=== PATIENT | female | born 2000 | race Two or more races ===

== ENCOUNTER 2019-10-13 11:02 | Inpatient (IN) | payer MEDICAID ==
[~2019-10-13 11:02] MED LIST: Bupivacaine 0.25% 10 ML SDV ONE
[2019-10-13] MEDS ORDERED: Nalbuphine 10 MG/ML Syringe IVPUSH PRN (11:44)
[2019-10-13] MEDS ORDERED: Sodium Chloride 0.9% 10 ML Syringe FLUSH PRN (11:44)
[2019-10-13] MEDS ORDERED: Ondansetron 4 MG/2 ML SDV IVPUSH PRN (11:44)
[2019-10-13] MEDS ORDERED: Oxytocin/Lactated Ringers 10 UNIT/1,000 ML BAG IV SCH ×2 (11:45→12:00)
--- NOTE | 2019-10-13 11:48 | PCM.LDHP ---
L&D History of Present Illness - General Date of Service: 10/13/19 Admit Problem/Dx: Patient Status Order with Admit Dx/Problem 10/13/19 11:44 Patient Status [ADT] Routine Admission Diagnosis/Problem Admission Diagnosis/Problem Normal in third trimester Source of Information: Patient History Limitations: Reports: No Limitations - History of Present Illness Introduction:: Patient is a 19 y/o at 39 2/7 wks who presents for IOL. Was seen in clinic earlier today for concerns of decreased FM. NST reassuring, but not initially reactive. For this reason was sent for IOL. Doing well otherwise - Related Data Allergies/Adverse Reactions: Allergies Allergy/AdvReac Type Severity Reaction Status Date / Time No Known Allergies Allergy Verified 01/28/19 11:08 Home Medications: Home Meds . 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 (Approximate): Social & Family History - Family History Family Medical History: Noncontributory - Tobacco Use Smoking Status *Q: Never Smoker - Caffeine Use Caffeine Use: Reports: Coffee - Alcohol Use Alcohol Use History: No - Recreational Drug Use Recreational Drug Use: No H&P Review of Systems - Review of Systems: Review Of Systems: See Below General: Reports: No Symptoms Pulmonary: Reports: No Symptoms Cardiovascular: Reports: No Symptoms Gastrointestinal: Reports: No Symptoms Genitourinary: Reports: No Symptoms Musculoskeletal: Reports: No Symptoms Psychiatric: Reports: No Symptoms Neurological: Reports: No Symptoms L&D Exam - Exam Exam: See Below - OB Specific Contraction Intensity: Irritability Movement: Active Heart Tones: Present Heart Tones per Min: 145 Heart Rate (FHR) Variability: Moderate (6-25 bmp) Presentation: Vertex - Leal Score Leal Score Cervix Position: Midposition Leal Score Consistency: Soft Leal Score Effacement: 51-70% Leal Score Dilation: 3-4 cm Leal Score Infant's Station: -3 Leal Score Total: 7 - Exam General: Alert, Oriented, Cooperative Lungs: Clear to Auscultation, Normal Respiratory Effort Cardiovascular: Regular Rate, Regular Rhythm GI/Abdominal Exam: Soft, Non-Tender Genitourinary: Normal external exam Extremities: Normal Inspection - Patient Data Result Diagrams: 10/13/19 11:55 - Problem List (1) 39 weeks gestation of SNOMED Code(s): 84445055 ICD Code: Z3A.39 - 39 WEEKS GESTATION OF Status: Acute Current Visit: Yes (2) Gestational thrombocytopenia SNOMED Code(s): 604396396 ICD Code: O99.119 - OTH DIS OF BLD/BLD-FORM ORG/IMMUN MECHNSM COMP PREG,UNSP TRI; D69.6 - THROMBOCYTOPENIA, UNSPECIFIED Status: Acute Current Visit: Yes Qualifiers: Trimester: third trimester Qualified Code(s): O99.113 - Other diseases of the blood and blood-forming organs and certain disorders involving the immune mechanism complicating , third trimester; D69.6 - Thrombocytopenia, unspecified Problem List Initiated/Reviewed/Updated: Yes Orders Last 24hrs: Active Orders 24 hr Category Date Time Status Patient Status [ADT] Routine ADT 10/13/19 11:44 Ordered Activity as Tolerated [RC] PFP Care 10/13/19 11:44 Ordered Communication Order [RC] ASDIRECTED Care 10/13/19 11:44 Ordered Heart Tones [RC] ASDIRECTED Care 10/13/19 11:44 Ordered Non Stress Test [RC] PER UNIT ROUTINE Care 10/13/19 11:44 Ordered Notify Provider [RC] PRN Care 10/13/19 11:44 Ordered Peripheral IV Care [RC] . DIRECTED Care 10/13/19 11:44 Ordered Vital Signs [RC] PER UNIT ROUTINE Care 10/13/19 11:44 Ordered Regular Diet [DIET] Diet 10/13/19 Breakfast Ordered CBC W/O DIFF,HEMOGRAM [HEME] Routine Lab 10/13/19 11:44 Ordered RAPID PLASMA REAGIN,RPR [CHEM] Routine Lab 10/13/19 11:44 Ordered TYPE AND SCREEN [BBK] Routine Lab 10/13/19 11:44 Ordered Lactated Ringers [Ringers, Lactated] 1,000 ml Med 10/13/19 11:45 Ordered IV ASDIRECTED Nalbuphine [Nubain] Med 10/13/19 11:44 Ordered 10 mg IVPUSH Q2H PRN Ondansetron [Zofran] Med 10/13/19 11:44 Ordered 4 mg IVPUSH Q4H PRN Oxytocin/Lactated Ringers [Pitocin in LR 10 Units/1,000 Med 10/13/19 11:45 Ordered ML] 10 unit in 1,000 ml IV .CONTINUOUS Oxytocin/Lactated Ringers [Pitocin in LR 10 Units/1,000 Med 10/13/19 12:00 Ordered ML] 10 unit in 1,000 ml IV TITRATE Sodium Chloride 0.9% [Saline Flush] Med 10/13/19 11:44 Ordered 10 ml FLUSH ASDIRECTED PRN Electronic Heart Tones Ext w TOCO [WOMSER] Oth 10/13/19 11:44 Ordered Routine Electronic Heart Tones Internal [WOMSER] Per Unit Oth 10/13/19 11:44 Ordered Routine Peripheral IV Insertion Adult [OM.PC] Routine Oth 10/13/19 11:44 Ordered Resuscitation Status Routine Resus Stat 10/13/19 11:44 Ordered Medication Orders Lactated Ringer's (Ringers, Lactated) 1,000 mls @ 100 mls/hr IV ASDIRECTED JACKIE Oxytocin/Lactated Ringer's (Pitocin In Lr 10 Units/1,000 Ml) 10 unit in 1,000 mls @ 500 mls/hr IV .CONTINUOUS JACKIE Nalbuphine HCl (Nubain) 10 mg IVPUSH Q2H PRN PRN Reason: Pain Ondansetron HCl (Zofran) 4 mg IVPUSH Q4H PRN PRN Reason: Nausea/Vomiting Sodium Chloride (Saline Flush) 10 ml FLUSH ASDIRECTED PRN PRN Reason: Keep Vein Open Assessment/Plan Comment:: * Labs done * GBS negative, no need for antibiotics * AROM and pitocin for IOL * Pain management per patient preference * Anticipate
[2019-10-13] MEDS: Lactated Ringers 1,000 ML IV SCH ×4 (12:45→18:08)
--- NOTE | 2019-10-13 13:15 | PCM.PREANE ---
Preanesthetic Assessment - Procedure Proposed Procedure: Continuous labor epidural - Anesthesia/Transfusion/Family Hx Anesthesia History: No Prior Anesthesia Transfusion History: No Prior Transfusion(s) - Review of Systems General: No Symptoms Pulmonary: No Symptoms Cardiovascular: No Symptoms Gastrointestinal: No Symptoms Neurological: No Symptoms Other: Reports: None - Physical Assessment Vital Signs: Last Vital Signs Temp 98.0 F 10/13/19 11:44 Pulse 100 10/13/19 11:44 Resp 16 10/13/19 11:44 BP 122/75 10/13/19 11:44 Pulse Ox Height: 1.65 m Weight: 81.647 kg ASA Class: 2 Mental Status: Alert & Oriented x3 Airway Class: Mallampati = 2 Dentition: Reports: Normal Dentition Thyro-Mental Finger Breadths: 3 Mouth Opening Finger Breadths: 3 ROM/Head Extension: Full Lungs: Clear to Auscultation, Normal Respiratory Effort Cardiovascular: Regular Rate, Regular Rhythm - Lab Values: Laboratory Last Values WBC 8.85 K/mm3 (3.98-10.04) 10/13/19 11:55 RBC 4.25 M/mm3 (3.98-5.22) 10/13/19 11:55 Hgb 13.1 gm/dl (11.2-15.7) 10/13/19 11:55 Hct 39.1 % (34.1-44.9) 10/13/19 11:55 MCV 92.0 fl (79.4-94.8) 10/13/19 11:55 MCH 30.8 pg (25.6-32.2) 10/13/19 11:55 MCHC 33.5 g/dl (32.2-35.5) 10/13/19 11:55 RDW Std Deviation 43.2 fL (36.4-46.3) 10/13/19 11:55 Plt Count 102 K/mm3 (182-369) L 10/13/19 11:55 MPV 11.4 fl (9.4-12.3) 10/13/19 11:55 - Allergies Allergies/Adverse Reactions: Allergies Allergy/AdvReac Type Severity Reaction Status Date / Time No Known Allergies Allergy Verified 01/28/19 11:08 - Acknowledgements Anesthesia Type Planned: Epidural Pt an Appropriate Candidate for the Planned Anesthesia: Yes Alternatives and Risks of Anesthesia Discussed w Pt/Guardian: Yes Pt/Guardian Understands and Agrees with Anesthesia Plan: Yes PreAnesthesia Questionnaire - Past Health History Medical/Surgical History: Denies 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 [No Known Home Meds] 01/28/19 [History] - CURRENT (IN HOUSE) MEDS Current Meds: Current Medications Lactated Ringer's (Ringers, Lactated) 1,000 mls @ 100 mls/hr IV ASDIRECTED JACKIE Last Admin: 10/13/19 12:45 Dose: 100 mls/hr Oxytocin/Lactated Ringer's (Pitocin In Lr 10 Units/1,000 Ml) 10 unit in 1,000 mls @ 500 mls/hr IV .CONTINUOUS JACKIE Oxytocin/Lactated Ringer's (Pitocin In Lr 10 Units/1,000 Ml) 10 unit in 1,000 mls @ 12 mls/hr IV TITRATE JACKIE; Protocol Last Admin: 10/13/19 12:46 Dose: 2 munits/min, 12 mls/hr Nalbuphine HCl (Nubain) 10 mg IVPUSH Q2H PRN PRN Reason: Pain Ondansetron HCl (Zofran) 4 mg IVPUSH Q4H PRN PRN Reason: Nausea/Vomiting Sodium Chloride (Saline Flush) 10 ml FLUSH ASDIRECTED PRN PRN Reason: Keep Vein Open
[2019-10-13] MEDS ORDERED: fentaNYL 100 MCG/2 ML SDV EPIDUR PRN (13:37)
[2019-10-13] MEDS ORDERED: diphenhydrAMINE 50 MG/ML SDV IVPUSH PRN (13:37)
[2019-10-13] MEDS ORDERED: Bupivacaine/fentaNYL/NS 100 ML Bag EPIDUR PRN (13:37)
[2019-10-13] MEDS ORDERED: ePHEDrine 50 MG/ML SDV IVPUSH PRN (13:37)
--- NOTE | 2019-10-13 19:36 | PCM.DEL ---
L & D Note - General Info Date of Service: 10/13/19 - Delivery Note Labor: Induced by ARM, Induced by Oxytocin Delivery Outcome: Livebirth Infant Delivery Method: Spontaneous Vaginal Delivery-Single Infant Delivery Mode: Spontaneous Presentation: Left Occiput Anterior (GUSTAVO) Nuchal Cord: Present, Reduced Anesthesia Type: Epidural Amniotic Fluid Description: Clear Episiotomy Type: None Laceration: None Placenta: Intact, Spontaneous Cord: 3 Vessels Estimated Blood Loss: 100 Resuscitation Needed: Yes Heron: Bulb Syringe, Stimulated, Warmed, Shelby Used, Warmer Used Delivery Comments (Free Text/Narrative):: Patient found to be complete and began pushing. With maternal pushing effort head delivered from PAYTON presentation. Nuchal cord present and reduced. With gentle downward traction shoulder did not immediately deliver. Patient placed in deep Alexandra and shoulder did deliver. rest of body followed. Infant placed on maternal abdomen. Cord clamped and cut. Cord blood obtained. Placenta allowed time to separate and expelled intact. Inspection of perineum showed no lacerations - General Info Date of Service: 10/13/19 - Patient Data Vitals - Most Recent: Last Vital Signs Temp 36.7 C 10/13/19 11:44 Pulse 100 10/13/19 11:44 Resp 16 10/13/19 11:44 BP 122/75 10/13/19 11:44 Pulse Ox Weight - Most Recent: 81.647 kg Lab Results Last 24 Hours: Laboratory Results - last 24 hr 10/13/19 10/13/19 Range/Units 11:55 11:55 WBC 8.85 (3.98-10.04) K/mm3 RBC 4.25 (3.98-5.22) M/mm3 Hgb 13.1 (11.2-15.7) gm/dl Hct 39.1 (34.1-44.9) % MCV 92.0 (79.4-94.8) fl MCH 30.8 (25.6-32.2) pg MCHC 33.5 (32.2-35.5) g/dl RDW Std Deviation 43.2 (36.4-46.3) fL Plt Count 102 L (182-369) K/mm3 MPV 11.4 (9.4-12.3) fl Blood Type O POSITIVE Gel Antibody Screen Negative Med Orders - Current: Current Medications Diphenhydramine HCl (Benadryl) 25 mg IVPUSH Q6H PRN PRN Reason: pruritis Ephedrine Sulfate (Ephedrine Sulfate) 5 mg IVPUSH ASDIRECTED PRN PRN Reason: Hypotension Fentanyl (Sublimaze) 100 mcg EPIDUR Q3H PRN PRN Reason: Pain Last Admin: 10/13/19 16:29 Dose: 100 mcg Fentanyl/Bupivacaine HCl (Fentanyl/Bupivacaine/Ns 2 Mcg-0.125% 100 Ml) 100 ml EPIDUR ASDIRECTED PRN PRN Reason: Pain Last Admin: 10/13/19 16:30 Dose: 100 ml Lactated Ringer's (Ringers, Lactated) 1,000 mls @ 100 mls/hr IV ASDIRECTED JACKIE Last Admin: 10/13/19 18:08 Dose: 100 mls/hr Oxytocin/Lactated Ringer's (Pitocin In Lr 10 Units/1,000 Ml) 10 unit in 1,000 mls @ 500 mls/hr IV .CONTINUOUS JACKIE Oxytocin/Lactated Ringer's (Pitocin In Lr 10 Units/1,000 Ml) 10 unit in 1,000 mls @ 12 mls/hr IV TITRATE JACKIE; Protocol Last Titration: 10/13/19 14:49 Dose: 4 munits/min, 24 mls/hr Nalbuphine HCl (Nubain) 10 mg IVPUSH Q2H PRN PRN Reason: Pain Ondansetron HCl (Zofran) 4 mg IVPUSH Q4H PRN PRN Reason: Nausea/Vomiting Sodium Chloride (Saline Flush) 10 ml FLUSH ASDIRECTED PRN PRN Reason: Keep Vein Open - Problem List & Annotations (1) 39 weeks gestation of SNOMED Code(s): 88092870 Code(s): Z3A.39 - 39 WEEKS GESTATION OF Status: Acute Current Visit: Yes (2) Gestational thrombocytopenia SNOMED Code(s): 723418069 Code(s): O99.119 - OTH DIS OF BLD/BLD-FORM ORG/IMMUN MECHNSM COMP PREG,UNSP TRI; D69.6 - THROMBOCYTOPENIA, UNSPECIFIED Status: Acute Current Visit: Yes Qualifiers: Trimester: third trimester Qualified Code(s): O99.113 - Other diseases of the blood and blood-forming organs and certain disorders involving the immune mechanism complicating , third trimester; D69.6 - Thrombocytopenia, unspecified (3) Vaginal delivery SNOMED Code(s): 297902434 Code(s): O80 - ENCOUNTER FOR FULL-TERM UNCOMPLICATED DELIVERY Status: Acute Current Visit: Yes - Problem List Review Problem List Initiated/Reviewed/Updated: Yes - My Orders Last 24 Hours: My Active Orders 10/13/19 11:44 Patient Status [ADT] Routine Activity as Tolerated [RC] PFP Communication Order [RC] ASDIRECTED Heart Tones [RC] ASDIRECTED Non Stress Test [RC] PER UNIT ROUTINE Notify Provider [RC] PRN Vital Signs [RC] PER UNIT ROUTINE Nalbuphine [Nubain] 10 mg IVPUSH Q2H PRN Ondansetron [Zofran] 4 mg IVPUSH Q4H PRN Sodium Chloride 0.9% [Saline Flush] 10 ml FLUSH ASDIRECTED PRN Electronic Heart Tones Ext w TOCO [WOMSER] Routine Electronic Heart Tones Internal [WOMSER] Per Unit Routine Peripheral IV Insertion Adult [OM.PC] Routine Resuscitation Status Routine 10/13/19 11:45 Lactated Ringers [Ringers, Lactated] 1,000 ml IV ASDIRECTED Oxytocin/Lactated Ringers [Pitocin in LR 10 Units/1,000 ML] 10 unit in 1,000 ml IV .CONTINUOUS 10/13/19 11:55 PATIENT RETYPE [BBK] Routine RAPID PLASMA REAGIN,RPR [CHEM] Routine 10/13/19 12:00 Oxytocin/Lactated Ringers [Pitocin in LR 10 Units/1,000 ML] 10 unit in 1,000 ml IV TITRATE 10/13/19 Breakfast Regular Diet [DIET] - Assessment Assessment:: PPD#0 - Plan Plan:: * Routine cares * Breast feeding * Discharge home tomorrow
[2019-10-13] MEDS ORDERED: Benzocaine/Menthol 20%-0.5% Spray 56 GM Canister TOP PRN (19:47)
[2019-10-13] MEDS ORDERED: Docusate Sodium 100 MG Cap PO PRN (19:47)
[2019-10-13] MEDS ORDERED: Witch Hazel Medicated Pads 40/Jar TOP PRN (19:47)
[2019-10-13] MEDS: Ibuprofen 600 MG Tab PO PRN (21:06)
[2019-10-14] MEDS: Ibuprofen 600 MG Tab PO PRN ×3 (04:23→20:24)
--- NOTE | 2019-10-14 07:04 | PCM.DCSUM1 ---
Discharge Summary - Discharge Data Discharge Date: 10/14/19 Discharge Disposition: Home, Self-Care 01 Condition: Good - Referral to Home Health Primary Care Physician: Brea Murray MD - Discharge Diagnosis/Problem(s) (1) 39 weeks gestation of SNOMED Code(s): 92974851 ICD Code: Z3A.39 - 39 WEEKS GESTATION OF Status: Acute Current Visit: Yes (2) Gestational thrombocytopenia SNOMED Code(s): 594964710 ICD Code: O99.119 - OTH DIS OF BLD/BLD-FORM ORG/IMMUN MECHNSM COMP PREG,UNSP TRI; D69.6 - THROMBOCYTOPENIA, UNSPECIFIED Status: Acute Current Visit: Yes Qualifiers: Trimester: third trimester Qualified Code(s): O99.113 - Other diseases of the blood and blood-forming organs and certain disorders involving the immune mechanism complicating , third trimester; D69.6 - Thrombocytopenia, unspecified (3) Vaginal delivery SNOMED Code(s): 542784532 ICD Code: O80 - ENCOUNTER FOR FULL-TERM UNCOMPLICATED DELIVERY Status: Acute Current Visit: Yes - Patient Summary/Data Complications: None Consults: None Recommended Follow-up Testing/Procedures: Follow up in 3 weeks for check Hospital Course: 19 y/o at 38 2/7 wks who presented to clinic for concerns of decreased FM. NST not initially reactive. Sent to L&D for IOL. Done with pitocin and AROM. Progressed well to complete dilation and underwent an uncomplicated . See delivery note. did well and was discharged home on PPD#1 - Patient Instructions Diet: Regular Diet as Tolerated Activity: As Tolerated Activity, Other: Pelvic rest for 6 weeks Driving: May Drive Today Showering/Bathing: May Shower Showering/Bathing, Other: May Bathe Notify Provider of: Fever, Increased Pain, Swelling and Redness, Drainage, Nausea and/or Vomiting - Discharge Plan *PRESCRIPTION DRUG MONITORING PROGRAM REVIEWED*: No *COPY OF PRESCRIPTION DRUG MONITORING REPORT IN PATIENT SEWTA: No Home Medications: Home Meds Acetaminophen [Tylenol] 650 mg PO Q4H PRN tablet 10/13/19 [Rx] Docusate Sodium [Colace] 100 mg PO BID PRN cap 10/13/19 [Rx] Ibuprofen [Motrin] 600 mg PO Q6H PRN tablet 10/13/19 [Rx] Referrals: Brea Murray MD [Primary Care Provider] - (3 weeks for check ) - Discharge Summary/Plan Comment DC Time >30 min.: No - Patient Data Vitals - Most Recent: Last Vital Signs Temp 36.9 C 10/14/19 04:22 Pulse 60 10/14/19 04:22 Resp 14 10/14/19 04:22 BP 107/77 10/14/19 04:22 Pulse Ox 98 10/14/19 04:22 Weight - Most Recent: 81.647 kg I&O - Last 24 hours: Intake & Output 10/13/19 10/14/19 10/14/19 22:59 06:59 14:59 Intake Total 4100 Balance 4100 Lab Results - Last 24 hrs: Laboratory Results - last 24 hr 10/13/19 10/13/19 10/13/19 Range/Units 11:55 11:55 11:55 WBC 8.85 (3.98-10.04) K/mm3 RBC 4.25 (3.98-5.22) M/mm3 Hgb 13.1 (11.2-15.7) gm/dl Hct 39.1 (34.1-44.9) % MCV 92.0 (79.4-94.8) fl MCH 30.8 (25.6-32.2) pg MCHC 33.5 (32.2-35.5) g/dl RDW Std Deviation 43.2 (36.4-46.3) fL Plt Count 102 L (182-369) K/mm3 MPV 11.4 (9.4-12.3) fl RPR Non-reactive (NONREACTIVE) Blood Type O POSITIVE Gel Antibody Screen Negative Med Orders - Current: Current Medications Acetaminophen (Tylenol) 650 mg PO Q4H PRN PRN Reason: mild pain or fever Benzocaine/Menthol (Dermoplast Pain Relief [place]) 0 gm TOP ASDIRECTED PRN PRN Reason: Perineal Comfort Measure Last Admin: 10/13/19 21:03 Dose: 1 applic Docusate Sodium (Colace) 100 mg PO BID PRN PRN Reason: Constipation Ibuprofen (Motrin) 600 mg PO Q6H PRN PRN Reason: Mild pain or fever Last Admin: 10/14/19 04:23 Dose: 600 mg Witch Yessica (Tucks) 1 pad TOP ASDIRECTED PRN PRN Reason: Perineal Comfort Measure Last Admin: 10/13/19 21:03 Dose: 1 applic Discontinued Medications Diphenhydramine HCl (Benadryl) 25 mg IVPUSH Q6H PRN PRN Reason: pruritis Ephedrine Sulfate (Ephedrine Sulfate) 5 mg IVPUSH ASDIRECTED PRN PRN Reason: Hypotension Fentanyl (Sublimaze) 100 mcg EPIDUR Q3H PRN PRN Reason: Pain Last Admin: 10/13/19 16:29 Dose: 100 mcg Fentanyl/Bupivacaine HCl (Fentanyl/Bupivacaine/Ns 2 Mcg-0.125% 100 Ml) 100 ml EPIDUR ASDIRECTED PRN PRN Reason: Pain Last Admin: 10/13/19 16:30 Dose: 100 ml Lactated Ringer's (Ringers, Lactated) 1,000 mls @ 100 mls/hr IV ASDIRECTED JACKIE Last Admin: 10/13/19 18:08 Dose: 100 mls/hr Oxytocin/Lactated Ringer's (Pitocin In Lr 10 Units/1,000 Ml) 10 unit in 1,000 mls @ 500 mls/hr IV .CONTINUOUS JACKIE Oxytocin/Lactated Ringer's (Pitocin In Lr 10 Units/1,000 Ml) 10 unit in 1,000 mls @ 12 mls/hr IV TITRATE JACKIE; Protocol Last Titration: 10/13/19 19:24 Dose: 500 mls/hr Nalbuphine HCl (Nubain) 10 mg IVPUSH Q2H PRN PRN Reason: Pain Ondansetron HCl (Zofran) 4 mg IVPUSH Q4H PRN PRN Reason: Nausea/Vomiting Sodium Chloride (Saline Flush) 10 ml FLUSH ASDIRECTED PRN PRN Reason: Keep Vein Open
--- NOTE | 2019-10-14 07:04 | PCM.PNPP ---
- General Info Date of Service: 10/14/19 Functional Status: Reports: Pain Controlled, Tolerating Diet, Ambulating, Urinating - Review of Systems General: Reports: No Symptoms Pulmonary: Reports: No Symptoms Cardiovascular: Reports: No Symptoms Gastrointestinal: Reports: No Symptoms Genitourinary: Reports: No Symptoms Musculoskeletal: Reports: No Symptoms Neurological: Reports: No Symptoms - Patient Data Vital Signs - Most Recent: Last Vital Signs Temp 36.9 C 10/14/19 04:22 Pulse 60 10/14/19 04:22 Resp 14 10/14/19 04:22 BP 107/77 10/14/19 04:22 Pulse Ox 98 10/14/19 04:22 Weight - Most Recent: 81.647 kg I&O - Last 24 Hours: Intake & Output 10/13/19 10/14/19 10/14/19 22:59 06:59 14:59 Intake Total 4100 Balance 4100 Lab Results - Last 24 Hours: Laboratory Results - last 24 hr 10/13/19 10/13/19 10/13/19 Range/Units 11:55 11:55 11:55 WBC 8.85 (3.98-10.04) K/mm3 RBC 4.25 (3.98-5.22) M/mm3 Hgb 13.1 (11.2-15.7) gm/dl Hct 39.1 (34.1-44.9) % MCV 92.0 (79.4-94.8) fl MCH 30.8 (25.6-32.2) pg MCHC 33.5 (32.2-35.5) g/dl RDW Std Deviation 43.2 (36.4-46.3) fL Plt Count 102 L (182-369) K/mm3 MPV 11.4 (9.4-12.3) fl RPR Non-reactive (NONREACTIVE) Blood Type O POSITIVE Gel Antibody Screen Negative Med Orders - Current: Current Medications Acetaminophen (Tylenol) 650 mg PO Q4H PRN PRN Reason: mild pain or fever Benzocaine/Menthol (Dermoplast Pain Relief [place]) 0 gm TOP ASDIRECTED PRN PRN Reason: Perineal Comfort Measure Last Admin: 10/13/19 21:03 Dose: 1 applic Docusate Sodium (Colace) 100 mg PO BID PRN PRN Reason: Constipation Ibuprofen (Motrin) 600 mg PO Q6H PRN PRN Reason: Mild pain or fever Last Admin: 10/14/19 04:23 Dose: 600 mg Witch [place] (Tucks) 1 pad TOP ASDIRECTED PRN PRN Reason: Perineal Comfort Measure Last Admin: 10/13/19 21:03 Dose: 1 applic Discontinued Medications Diphenhydramine HCl (Benadryl) 25 mg IVPUSH Q6H PRN PRN Reason: pruritis Ephedrine Sulfate (Ephedrine Sulfate) 5 mg IVPUSH ASDIRECTED PRN PRN Reason: Hypotension Fentanyl (Sublimaze) 100 mcg EPIDUR Q3H PRN PRN Reason: Pain Last Admin: 10/13/19 16:29 Dose: 100 mcg Fentanyl/Bupivacaine HCl (Fentanyl/Bupivacaine/Ns 2 Mcg-0.125% 100 Ml) 100 ml EPIDUR ASDIRECTED PRN PRN Reason: Pain Last Admin: 10/13/19 16:30 Dose: 100 ml Lactated Ringer's (Ringers, Lactated) 1,000 mls @ 100 mls/hr IV ASDIRECTED JACKIE Last Admin: 10/13/19 18:08 Dose: 100 mls/hr Oxytocin/Lactated Ringer's (Pitocin In Lr 10 Units/1,000 Ml) 10 unit in 1,000 mls @ 500 mls/hr IV .CONTINUOUS JACKIE Oxytocin/Lactated Ringer's (Pitocin In Lr 10 Units/1,000 Ml) 10 unit in 1,000 mls @ 12 mls/hr IV TITRATE JACKIE; Protocol Last Titration: 10/13/19 19:24 Dose: 500 mls/hr Nalbuphine HCl (Nubain) 10 mg IVPUSH Q2H PRN PRN Reason: Pain Ondansetron HCl (Zofran) 4 mg IVPUSH Q4H PRN PRN Reason: Nausea/Vomiting Sodium Chloride (Saline Flush) 10 ml FLUSH ASDIRECTED PRN PRN Reason: Keep Vein Open - Infant Interaction Infant Disposition, : in Room with Family Infant Interaction: Holding Infant Feeding: Breastfed ; Nursed Well Support Person: Significant Other - Recovery Exam Fundal Tone: Firm Fundal Level: At Umbilicus Fundal Placement: Midline Lochia Amount: Small Lochia Color: Rubra/Red Perineum Description: Intact, Minimal Bruising/Swelling Episiotomy/Laceration: None Bladder Status: Nonpalpable, Voiding Urinary Elimination: Voided - Exam General: Alert, Oriented, Cooperative GI/Abdominal Exam: Soft, Non-Tender Extremities: Normal Inspection - Problem List & Annotations (1) 39 weeks gestation of SNOMED Code(s): 70872658 Code(s): Z3A.39 - 39 WEEKS GESTATION OF Status: Acute Current Visit: Yes (2) Gestational thrombocytopenia SNOMED Code(s): 615388482 Code(s): O99.119 - OTH DIS OF BLD/BLD-FORM ORG/IMMUN MECHNSM COMP PREG,UNSP TRI; D69.6 - THROMBOCYTOPENIA, UNSPECIFIED Status: Acute Current Visit: Yes Qualifiers: Trimester: third trimester Qualified Code(s): O99.113 - Other diseases of the blood and blood-forming organs and certain disorders involving the immune mechanism complicating , third trimester; D69.6 - Thrombocytopenia, unspecified (3) Vaginal delivery SNOMED Code(s): 988763577 Code(s): O80 - ENCOUNTER FOR FULL-TERM UNCOMPLICATED DELIVERY Status: Acute Current Visit: Yes - Problem List Review Problem List Initiated/Reviewed/Updated: Yes - My Orders Last 24 Hours: My Active Orders 10/13/19 11:44 Heart Tones [RC] ASDIRECTED Resuscitation Status Routine 10/13/19 19:47 Activity as Tolerated [RC] PER UNIT ROUTINE Vital Signs [RC] 03,09,15,21 Acetaminophen [Tylenol] 650 mg PO Q4H PRN Benzocaine/Menthol [Dermoplast Pain Relief [place]] See Dose Instructions TOP ASDIRECTED PRN Docusate Sodium [Colace] 100 mg PO BID PRN Ibuprofen [Motrin] 600 mg PO Q6H PRN witch [place] [Tucks] 1 pad TOP ASDIRECTED PRN Assess Lochia [WOMSER] Per Unit Routine Assess Uterine Involution [WOMSER] Per Unit Routine Breast Pump [WOMSER] Per Unit Routine Heat Therapy [OM.PC] PRN Ice Therapy [OM.PC] Per Unit Routine Perineal Care [OM.PC] Per Unit Routine Peripheral IV Discontinue [OM.PC] Routine Sitz Bath [OM.PC] Per Unit Routine 10/13/19 Dinner Regular Diet [DIET] 10/14/19 19:47 Heat Therapy [OM.PC] PRN - Assessment Assessment:: PPD#1 - Plan Plan:: * Routine cares * Breast feeding * Discharge home today
--- NOTE | 2019-10-14 08:54 | PCM48HPAN ---
Post Anesthesia Note - EVALUATION WITHIN 48HRS OF ANESTHETIC Vital Signs in Normal Range: Yes Patient Participated in Evaluation: Yes Respiratory Function Stable: Yes Airway Patent: Yes Cardiovascular Function Stable: Yes Hydration Status Stable: Yes Pain Control Satisfactory: Yes Nausea and Vomiting Control Satisfactory: Yes Mental Status Recovered: Yes Vital Signs: Last Vital Signs Temp 36.9 C 10/14/19 04:22 Pulse 60 10/14/19 04:22 Resp 14 10/14/19 04:22 BP 107/77 10/14/19 04:22 Pulse Ox 98 10/14/19 04:22
[2019-10-14] MEDS: Acetaminophen 325 MG Tab PO PRN ×2 (09:23→16:37)
== END 2019-10-14 20:40 | disposition home or self-care (01) | DRG 807 ==
LOC: JD.OBCHECK 11:02 → JD.OB 11:09 → JD.OBCHECK 11:44 → JD.OB 19:23 → OBSVTOIN 19:23
PROVIDERS: ADMIT Obstetrics & Gynecology; ATTEND Obstetrics & Gynecology
PROC: 10E0XZZ Delivery of Products of Conception, External Approach (ICD-10-PCS; principal; 2019-10-13)
PROC: 10907ZC Drainage of Amniotic Fluid, Therapeutic from Products of Conception, Via Natural or Artificial Opening (ICD-10-PCS; 2019-10-13)
PROC: 3E033VJ Introduction of Other Hormone into Peripheral Vein, Percutaneous Approach (ICD-10-PCS; 2019-10-13)
PROC: 3E0R3BZ Introduction of Anesthetic Agent into Spinal Canal, Percutaneous Approach (ICD-10-PCS; 2019-10-13)
DX: O99.12 Other diseases of the blood and blood-forming organs and certain disorders involving the immune mechanism complicating childbirth (principal); Z37.0 Single live birth; D69.6 Thrombocytopenia, unspecified; Z3A.39 39 weeks gestation of pregnancy; O69.81X0 Labor and delivery complicated by cord around neck, without compression, not applicable or unspecified
CPT/HCPCS: 36415; 51702; 59025; 59409; 85027; 86592; 86850; 86900; 86901; A9270-GY; J2590; J3010; J3490; J7120